=== PATIENT | female | born 1975 | race African-American/Black ===

== ENCOUNTER 2018-10-18 19:03 | Inpatient (IN) ==
[2018-10-18] MEDS ORDERED: 0.9 % Sodium Chloride 1,000 ML IVC ONE ×2 (19:32→19:39)
[2018-10-18] MEDS ORDERED: cefTRIAXone 1,000 MG in Water for inj. (sterile) 10 ML IVP ONE (19:32)
[2018-10-18] MEDS ORDERED: Morphine Sulfate 2 MG/ML SYRINGE IVP ONE (19:32)
[2018-10-18] MEDS ORDERED: Ondansetron ODT 4 MG TAB.RAPDIS SL ONE (19:32)
[2018-10-18 19:43] LABS: Bilirubin,Urine Small (Negative); Blood,Urine Moderate (Negative); Clarity,Urine Clear (Clear); Color,Urine Yellow (Yellow); Glucose,Urine (UA) Normal (Normal); Ketones,Urine 15 mg/dL (Negative); Leukocyte Esterase,Urine Negative (Negative); Nitrite,Urine Negative (Negative); Protein,Urine 100 mg/dL (Neg-Trace); Specific Gravity,Urine 1.023 (1.010-1.025); Urobilinogen,Urine Normal (Normal)
[2018-10-18 19:45] LABS: Hyaline Casts,Urine None Seen per lpf (None-Few); RBC,Urine 0-3 per hpf (0-3); Squamous Epithelial Cell,Urine Many per lpf (None-Few)
[2018-10-18] MEDS ORDERED: Ketorolac 15 MG/ML VIAL IVP ONE (19:50)
[2018-10-18 19:59] LABS: Basophils % 0.2 %; Eosinophils % 0.3 %; Hematocrit 35.6 % (35.3-44.9); Hemoglobin 12.4 g/dL (11.5-15.4); Immature Granulocytes % 0.8 % (0-4); Lymphocytes # 0.7 K/mcL (0.6-4.6); Lymphocytes % 7.7 %; Mean Corpuscular HGB Conc 34.8 g/dL (31.6-35.5); Mean Corpuscular Hemoglobin 30.8 pg (28.0-33.3); Mean Corpuscular Volume 88.3 fL (83.0-100.0); Mean Platelet Volume 10.2 fL (9.4-12.4); Monocytes # 0.2 K/mcL (0.0-1.3); Monocytes % 2.4 %; Neutrophils # 8.1 K/mcL (1.6-8.9); Platelet Count 163 K/mcL (140-400); Red Blood Count 4.03 M/mcL (3.82-4.97); Red Cell Distribution Width 12.9 % (11.5-14.5); Segmented Neutrophils % 88.6 %; White Blood Count 9.2 K/mcL (4.3-11.1)
[2018-10-18 20:15] LABS: Bacteria,Urine Few per hpf (None-Few); Yeast,Urine Moderate per hpf (None Seen)
[2018-10-18 20:17] LABS: Alanine Aminotransferase 11 Units/L (7-52); Albumin 3.6 g/dL (3.5-5.7); Albumin/Globulin Ratio 1.1 (1.1-2.2); Alkaline Phosphatase 87 Units/L (34-104); Amylase 20 Units/L (29-103); Aspartate Amino Transferase 14 Units/L (13-39); BUN/Creatinine Ratio 8 (6-26); Bilirubin,Direct 0.5 mg/dL (0.0-0.2); Bilirubin,Indirect 0.8 mg/dL (0.0-1.2); Bilirubin,Total 1.3 mg/dL (0.3-1.0); Blood Urea Nitrogen 12 mg/dL (6-20); Calcium 9.1 mg/dL (8.6-10.3); Carbon Dioxide 24 mEq/L (23-29); Chloride 95 mEq/L (98-107); Globulin 3.3 g/dL (2.4-3.5); Glucose 162 mg/dL (70-105); Lipase 8 Units/L (11-82); Osmolality,Calculated 271 (280-300); Potassium 2.7 mEq/L (3.5-5.1); Sodium 129 mEq/L (136-145); Total Protein 6.9 g/dL (6.4-8.9); eGFR For African Americans 49 (> 60); eGFR For Non-African Americans 40 (> 60)
--- NOTE | 2018-10-18 23:21 | Emergency Department Note ---
Disposition Clinical Impression: Calculus of kidney Disposition: Admitted As Inpatient Condition: Good Referrals: Zay Leigh MD [Primary Care Provider] - Time of Disposition: 23:24 General Adult HPI - General Chief complaint: ED Abdominal Pain Stated complaint: kidney stone 7 cm Source: patient, family - History of Present Illness HPI Narrative: HPI Chief Complaint kidney stone Patient Stated Complaint Patient is a 43-year-old white female comes in with known kidney stone recently diagnosed a few days ago by outside hospital 7 mm patient states no improvement felt feverish and chilled positive dysuria patient denies any chest pain or shortness of breath coming in today due to not improvement of symptoms patient alert and oriented 3 all other symptoms reviewed and are negative Allergy List : Reviewed-and agree with nurses notes Home Medication List : Reviewed-and agree with nurses notes Medical and Surgical History Active Problem List: Reviewed-and agree with nurses notes Family History Reviewed- see -nurses notes Vital Signs and Body Measurements Reviewed- see -nurses notes ROS At Least 10 Organ Systems Reviewed and Negative Except as Indicated in HPI Physical Examination: All findings normal unless otherwise noted Constitutional Alert & orientated x 3, No Acute Distress Well Nourished Head and Face :Normocephalic and Atraumatic Eye Extraocular Movement Intact Pupils Equally Round Reactive to light Ear Nose Throat Mucous Membranes Moist No Injury or Deformity Oropharynx Clear Cardiovascular Capillary Refill Less than 2 Seconds No Peripheral Edema Normal S1, S2 Pulses except positive tachycardia regular rhythm Respiratory Clear to Auscultation Bilaterally Normal Rate and Effort no Respiratory Distress or Stridor Gastrointestinal Abdomen Soft Bowel Sounds Present Not Tender Distended Generalized Tenderness. No Guarding Rebound Rigid Genitourinary No Lesion Normal External Genitalia positive bilateral flank tenderness to palpation Musculoskeletal Distal Pulses Normal No Injury or Deformity No Calf Tendernes, no Paraspinous Tenderness or spinal ttp Cervical Lumbar Thoracic Neurologic 5/5 Strength throughout No Focal Deficits Sensation Intact or Slurred Speech Skin Dry No Lesion No Rash Normal Color Warm no Cyanosis Diaphoretic Lymph No Lymphadenopathy or Lymphadenopathy Lymphedema Psychiatric Appropriate Affect Cooperative not Depressed Manic or having Suicidal Thoughts Laboratory Results-reviewed see results Data Reviewed Medical Decision Making and Diagnosis Medical Decision Making Patient seen and evaluated labs and imaging ordered reviewed images reviewed by myself and radiologist patient treated symptomatically with improvement patient on CT no have hydronephrosis continued IV antibiotics the medic treatment patient also noted to be up O clinic was replaced with magnesium and potassium here and be admitted for further evaluation and management and care Differential Diagnosis Considered Final Diagnostic Impression #1 kidney stone #2 urosepsis #3 hyponatremia Disposition Admit Supervisory Note Billing Evaluation and Management Total Critical Care Time 78 minutes Pain Scale: 10 - Related Data Allergies Allergy/AdvReac Type Severity Reaction Status Date / Time No Known Allergies Allergy Verified 10/18/18 19:07 Past Medical History - Past Medical History Medical history: Reports: non-contributory Psychiatric history: Reports: no psych history - Social History Smoking Status: Never smoker Alcohol use: Reports: none Drug use: Reports: none Physical Exam - General General appearance: alert Course Vital Signs Temperature 99.6 F 10/18/18 19:07 Pulse Rate 122 10/18/18 19:07 Respiratory Rate 24 10/18/18 19:07 Blood Pressure 125/70 10/18/18 19:07 O2 Sat by Pulse Oximetry 96 10/18/18 19:07 Temperature 99.6 F 10/18/18 20:20 Pulse Rate 122 10/18/18 20:20 Respiratory Rate 24 10/18/18 20:20 Blood Pressure 125/70 10/18/18 20:20 O2 Sat by Pulse Oximetry 96 10/18/18 20:20 Oxygen Delivery Oxygen Delivery Room Air Medical Decision Making - Lab Data Result diagrams: 10/18/18 19:35 10/18/18 19:35 Lab Results 10/18/18 10/18/18 10/18/18 Range/Units 19:30 19:30 19:30 WBC (4.3-11.1) K/mcL RBC (3.82-4.97) M/mcL Hgb (11.5-15.4) g/dL Hct (35.3-44.9) % MCV (83.0-100.0) fL MCH (28.0-33.3) pg MCHC (31.6-35.5) g/dL RDW (11.5-14.5) % Plt Count (140-400) K/mcL MPV (9.4-12.4) fL Immature Gran % (0-4) % Seg Neutrophils % % Lymphocytes % % Monocytes % % Eosinophils % % Basophils % % Neutrophils # (1.6-8.9) K/mcL Lymphocytes # (0.6-4.6) K/mcL Monocytes # (0.0-1.3) K/mcL Eosinophils # (0.0-0.6) K/mcL Basophils # (0.0-0.2) K/mcL Sodium (136-145) mEq/L Potassium (3.5-5.1) mEq/L Chloride (98-107) mEq/L Carbon Dioxide (23-29) mEq/L BUN (6-20) mg/dL Creatinine (0.60-1.20) mg/dL Est GFR ( Amer) (> 60) Est GFR (Non-Af Amer) (> 60) BUN/Creatinine Ratio (6-26) Glucose (70-105) mg/dL Calculated Osmolality (280-300) Lactic Acid 1.5 (0.5-2.2) mmol/L Calcium (8.6-10.3) mg/dL Total Bilirubin (0.3-1.0) mg/dL Direct Bilirubin (0.0-0.2) mg/dL Indirect Bilirubin (0.0-1.2) mg/dL AST (13-39) Units/L ALT (7-52) Units/L Alkaline Phosphatase (34-104) Units/L Serum Total Protein (6.4-8.9) g/dL Albumin (3.5-5.7) g/dL Globulin (2.4-3.5) g/dL Albumin/Globulin Ratio (1.1-2.2) Amylase (29-103) Units/L Lipase (11-82) Units/L Beta HCG, Quant (Less than 5) mIU/mL Urine Color Yellow (Yellow) Urine Clarity Clear (Clear) Urine pH 6.0 (5.0-8.0) pH Units Ur Specific [place] 1.023 (1.010-1.025) Urine Protein 100 H (Neg-Trace) mg/dL Urine Glucose (UA) Normal (Normal) mg/dL Urine Ketones 15 H (Negative) mg/dL Urine Blood Moderate H (Negative) Urine Nitrite Negative (Negative) Urine Bilirubin Small H (Negative) Urine Urobilinogen Normal (Normal) mg/dL Ur Leukocyte Esterase Negative (Negative) Urine Microscopic RBC 0-3 (0-3) per hpf Urine Microscopic WBC 3-5 H (0-3) per hpf Ur Squamous Epith Cells Many H (None-Few) per lpf Urine Bacteria Few (None-Few) per hpf Hyaline Casts None Seen (None-Few) per lpf Urine Yeast Moderate H (None Seen) per hpf Ur Culture Indicated? YES A (NO) Urine Test Negative (Negative) 10/18/18 10/18/18 Range/Units 19:35 19:35 WBC 9.2 (4.3-11.1) K/mcL RBC 4.03 (3.82-4.97) M/mcL Hgb 12.4 (11.5-15.4) g/dL Hct 35.6 (35.3-44.9) % MCV 88.3 (83.0-100.0) fL MCH 30.8 (28.0-33.3) pg MCHC 34.8 (31.6-35.5) g/dL RDW 12.9 (11.5-14.5) % Plt Count 163 (140-400) K/mcL MPV 10.2 (9.4-12.4) fL Immature Gran % 0.8 (0-4) % Seg Neutrophils % 88.6 % Lymphocytes % 7.7 % Monocytes % 2.4 % Eosinophils % 0.3 % Basophils % 0.2 % Neutrophils # 8.1 (1.6-8.9) K/mcL Lymphocytes # 0.7 (0.6-4.6) K/mcL Monocytes # 0.2 (0.0-1.3) K/mcL Eosinophils # 0.0 (0.0-0.6) K/mcL Basophils # 0.0 (0.0-0.2) K/mcL Sodium 129 L (136-145) mEq/L Potassium 2.7 L (3.5-5.1) mEq/L Chloride 95 L (98-107) mEq/L Carbon Dioxide 24 (23-29) mEq/L BUN 12 (6-20) mg/dL Creatinine 1.43 H (0.60-1.20) mg/dL Est GFR ( Amer) 49 L (> 60) Est GFR (Non-Af Amer) 40 L (> 60) BUN/Creatinine Ratio 8 (6-26) Glucose 162 H (70-105) mg/dL Calculated Osmolality 271 L (280-300) Lactic Acid (0.5-2.2) mmol/L Calcium 9.1 (8.6-10.3) mg/dL Total Bilirubin 1.3 H (0.3-1.0) mg/dL Direct Bilirubin 0.5 H (0.0-0.2) mg/dL Indirect Bilirubin 0.8 (0.0-1.2) mg/dL AST 14 (13-39) Units/L ALT 11 (7-52) Units/L Alkaline Phosphatase 87 (34-104) Units/L Serum Total Protein 6.9 (6.4-8.9) g/dL Albumin 3.6 (3.5-5.7) g/dL Globulin 3.3 (2.4-3.5) g/dL Albumin/Globulin Ratio 1.1 (1.1-2.2) Amylase 20 L (29-103) Units/L Lipase 8 L (11-82) Units/L Beta HCG, Quant < 1 (Less than 5) mIU/mL Urine Color (Yellow) Urine Clarity (Clear) Urine pH (5.0-8.0) pH Units Ur Specific [place] (1.010-1.025) Urine Protein (Neg-Trace) mg/dL Urine Glucose (UA) (Normal) mg/dL Urine Ketones (Negative) mg/dL Urine Blood (Negative) Urine Nitrite (Negative) Urine Bilirubin (Negative) Urine Urobilinogen (Normal) mg/dL Ur Leukocyte Esterase (Negative) Urine Microscopic RBC (0-3) per hpf Urine Microscopic WBC (0-3) per hpf Ur Squamous Epith Cells (None-Few) per lpf Urine Bacteria (None-Few) per hpf Hyaline Casts (None-Few) per lpf Urine Yeast (None Seen) per hpf Ur Culture Indicated? (NO) Urine Test (Negative)
[2018-10-19] MEDS ORDERED: MOM Conc 10 ML UD.LIQ PO ONE (00:27)
[2018-10-19] MEDS ORDERED: Ketorolac 30 MG/ML VIAL IVP PRN (00:28)
[2018-10-19] MEDS ORDERED: Ondansetron 4 MG/2 ML VIAL IVP PRN (00:29)
--- NOTE | 2018-10-19 00:51 | Internal Med History&Physical ---
Date of Encounter: 10/19/18 Time of Encounter: 00:50 Internal Medicine - H&P: HPI Chief complaint: flank pain Admitted From: Home () Plans for Post Hospital Care: Home History of present illness: Amanda Haq is a 43 year old woman with IBS-C who has had kidney stones in the past presenting to the emergency room complaining of one week of left flank pain radiating to her lower abdomen. Over the following day she developed fever and chills for which reason she contacted her PCP who recommended that she start taking TMP/SMX. Due to ongoing symptoms he then prescribed tamsulosin for her. She says that the pain continued and she developed a fever of 102F. Her was at bedside stated that he came home from work during the day and found her lying in bed with notable rigors and complaining of pain. She also had associated nausea but no vomiting. She reported one episode of diarrhea on Thursday when her symptoms started but has not had a bowel movement since. She says her last kidney stone was 4 years ago and prior to that it was 20 years ago. She denies any allergies or being on any medications at this time. She denies dysuria. In the ER she was notably tachycardic and in discomfort. Lab work revealed sodium 129, potassium 2.7, chloride 95 and creatinine 1.43. Her urine was remarkable for many squamous cells and minimal pyuria and no microscopic hematuria. Abdomen CT showed a 6 mm distal left ureteral calculus with mild to moderate left-sided hydronephrosis with infiltration of the perinephric and periureteric fat. She was given fluids, analgesics and is admitted for further care. Vitals: Reviewed General: Well developed white woman lying in bed in no acute distress. Skin: Warm and supple. HEENT: Slightly dry mucous membranes. No conjunctivae pallor. Neck: No lymphadenopathy. No JVD. No carotid bruits. No palpable thyroid. Chest: Normal thoracic expansion. Normal breath sounds. Clear to auscultation. Heart: Normal S1 & S2; rhythmic. No rubs or murmurs. Abdomen: Non-distended, soft and tender to palpation in the left flank and suprapubic region. + Left CVA tenderness. Extremities: No clubbing, cyanosis or edema. No calf tenderness. Normal distal pulses. Neurological: Awake, alert and oriented to person, place and time. No focal deficits. Psych: Affect appropriate. Assessment/Plan 1. Left nephrolithiasis: Obstructive and causing mild to moderate hydronephrosis. Will place on IVF, analgesics and antiemetics as needed. Urology consult placed as she may require an intervention for relief. 2. Urinary tract infection: Her symptoms of fever and chills with finding of tachycardia here are concerning for a septic state, likely complicated from the urinary stasis provoked by the obstructing stone. It is possible that because she has already been taking TMP/SMX, the negative urine results and lack of leukocytosis on hematology are from the antimicrobial effect. Will send urine and blood cultures then continue ceftriaxone 1gr daily pending further results. 3. Electrolyte imbalance: As evidenced by hyponatremia, hypokalemia and hypochloremia. Likely secondary to poor intake in the setting of her 1 week of symptoms. IV NaCL w/40mEq of KCL is ordered for repletion. 4. Acute kidney injury: Suspected although we dont have a baseline to compare to. Likely from dehydration (prerenal) in addition to renal in the setting of obstruction. Will repeat BMP after adequate fluid resuscitation. 5. IBS-C: Will give a dose of MoM tonight and place her on daily senna/docusate. Past Med Surg Social Fam HX - Past Medical History Medical history: non-contributory Psychiatric history: no psych history - Social History Smoking Status: Never smoker Alcohol use: none Drug use: none Internal Medicine - H&P: Meds Allergy/AdvReac Type Severity Reaction Status Date / Time No Known Allergies Allergy Verified 10/18/18 19:07 All Systems PM: A 10-system review of systems was performed and is negative for pertinent findings except as documented above in the HPI. Family history reviewed and found non-contributory. - Constitutional Vitals: Temp Pulse Resp BP Pulse Ox 99.6 F 94 15 111/67 93 10/18/18 20:20 10/18/18 23:40 10/18/18 23:40 10/18/18 23:40 10/18/18 23:40 Exam: . Internal Med - H&P Results - Labs CBC & Chem 7: 10/18/18 19:35 10/18/18 19:35 Labs: Short CBC 10/18/18 Range/Units 19:35 WBC 9.2 (4.3-11.1) K/mcL Hgb 12.4 (11.5-15.4) g/dL Hct 35.6 (35.3-44.9) % Plt Count 163 (140-400) K/mcL Neutrophils # 8.1 (1.6-8.9) K/mcL BMP 10/18/18 19:35 Sodium 129 L Potassium 2.7 L Chloride 95 L Carbon Dioxide 24 BUN 12 Creatinine 1.43 H Glucose 162 H Calcium 9.1 Liver Function 10/18/18 Range/Units 19:35 Total Bilirubin 1.3 H (0.3-1.0) mg/dL Direct Bilirubin 0.5 H (0.0-0.2) mg/dL AST 14 (13-39) Units/L ALT 11 (7-52) Units/L Alkaline Phosphatase 87 (34-104) Units/L Albumin 3.6 (3.5-5.7) g/dL Urine 10/18/18 Range/Units 19:30 Urine Color Yellow (Yellow) Urine Clarity Clear (Clear) Urine pH 6.0 (5.0-8.0) pH Units Ur Specific [place] 1.023 (1.010-1.025) Urine Protein 100 H (Neg-Trace) mg/dL Urine Glucose (UA) Normal (Normal) mg/dL - Impressions ITS Impressions Abdomen/Pelvis CT 10/18/18 19:32 IMPRESSION: 1. 6 mm distal left ureteral calculus. Mild to moderate left-sided hydronephrosis with infiltration of the perinephric and periureteric fat. 2. No other acute findings within the abdomen or pelvis. 3. Increased attenuation in the dependent gallbladder, likely sludge. 4. Bibasilar atelectasis with trace left pleural effusion. D/ / 10/18/2018 21:01:46 M[facility]ule[facility] Interpreting Provider: Mika Mccauley MD - Time Spent With Patient Total time spent is greater than 50% in coordination of care (as documented) at patient's floor/unit and/or counseling patient:
[2018-10-19] MEDS: 0.9 % Sodium Chloride w KCl 40 MEQ/1,000 ML MLS IVC SCH ×2 (01:27→10:30)
[2018-10-19 05:39] LABS: Basophils % 0.2 %; Eosinophils % 0.4 %; Hematocrit 28.7 % (35.3-44.9); Immature Granulocytes % 0.9 % (0-4); Lymphocytes # 1.2 K/mcL (0.6-4.6); Lymphocytes % 12.6 %; Mean Corpuscular HGB Conc 33.8 g/dL (31.6-35.5); Mean Corpuscular Hemoglobin 30.8 pg (28.0-33.3); Mean Corpuscular Volume 91.1 fL (83.0-100.0); Mean Platelet Volume 10.1 fL (9.4-12.4); Monocytes # 1.1 K/mcL (0.0-1.3); Monocytes % 11.6 %; Neutrophils # 7.3 K/mcL (1.6-8.9); Platelet Count 148 K/mcL (140-400); Red Blood Count 3.15 M/mcL (3.82-4.97); Red Cell Distribution Width 13.2 % (11.5-14.5); Segmented Neutrophils % 74.3 %; White Blood Count 9.8 K/mcL (4.3-11.1)
[2018-10-19 05:45] LABS: Hemoglobin 9.7 g/dL (11.5-15.4)
[2018-10-19 06:00] LABS: Calcium 7.9 mg/dL (8.6-10.3); Magnesium 2.8 mg/dL (1.6-2.6); Platelet Estimate Normal (Normal); Potassium 3.5 mEq/L (3.5-5.1)
[2018-10-19] MEDS: Sennosides/Docusate Sodium TABLET PO SCH ×3 (08:31→22:13)
--- NOTE | 2018-10-19 09:40 | Urology - Consult Note ---
<Suad De Jesus N - Last Filed: 10/19/18 09:37> Date of Encounter: 10/19/18 Time of Encounter: 08:40 - Assessment and Plan (1) Ureteral stone with hydronephrosis Current Visit: Yes Status: Acute Assessment and plan: Patient is a 43-year-old female who presents with a 6 mm left distal ureteral stone and hydronephrosis. We discussed surgical risks and benefits, and patient verbalized understanding. Patient signed consent, and she is prepared undergo a left ureteroscopic stone extraction with holmium laser lithotripsy, basket retrieval and left ureteral stent placement. Patient will remain nothing by mouth. Urology CN:HPI Consult date: 10/19/18 Reason for consult Urology: Hydronephrosis (left ureteral stone) Requesting physician: Jose Martin Egan History of present illness: Patient is a 43-year-old female who presents with a 6 mm left distal ureteral stone and hydronephrosis. Patient reports a 5 day history of severe left-sided flank pain, nausea, fever and chills. Patient initially presented to primary care provider who prescribed oral Bactrim and Flomax. Patient states pain acutely worsened overnight, and she presented to the emergency department where she underwent a CT of the abdomen and pelvis revealing a 6 mm left distal ureteral stone and mild to moderate hydronephrosis. Patient reports a past history of renal stones, but she has passed all prior stones by medical expulsion. Patient admits to a family history of renal stones through her paternal grandmother. Currently, patient is sitting upright in bed in no apparent distress, and she denies any fever, chills, gross hematuria or dysuria. Past Med Surg Social Fam HX - Past Medical History Medical history: non-contributory Psychiatric history: no psych history - Past Surgical History Surgical History: non-contributory - Social History Smoking Status: Never smoker Alcohol use: none Drug use: none - Family History Paternal Grandmother Hx Family Genitourinary Disorders: Yes (renal stones ) Medications and Allergies Norethindrone-E.estradiol-Iron [Lo Loestrin Fe 1-10 Tablet] 1 tab PO DAILY 10/19/18 [History] Ondansetron HCl 4 mg PO Q4H PRN 10/19/18 [History] OxyCODONE/APAP 5/325 [Percocet 5/325 MG] 1 tab PO Q6H PRN 10/19/18 [History] Sulfamethoxazole/Trimeth DS [Bactrim Ds] 1 tab PO BID 10/19/18 [History] Tamsulosin [Flomax] 0.4 mg PO DAILY 10/19/18 [History] Allergy/AdvReac Type Severity Reaction Status Date / Time No Known Allergies Allergy Verified 10/19/18 10:49 Review of Systems - Constitutional chills, fatigue, fever(s) - EENT Nose, mouth and throat: no dizziness, no headache(s) - Cardiovascular no chest pain, no diaphoresis, no dyspnea - Respiratory no cough, no dyspnea - Gastrointestinal abdominal pain, nausea, no vomiting - Genitourinary Genitourinary: dysuria, flank pain, no difficulty urinating, no hematuria, no urinary frequency, no urinary hesitancy, no urinary incontinence, no urinary urgency - Musculoskeletal back pain, no muscle weakness - Integumentary no erythema, no rash - Neurological no confusion, no sensory deficit - Hematologic/Lymphatic no easy bleeding, no easy bruising - Allergic/Immunologic no throat swelling, no wheezing Exam Initial Vital Signs Temp Pulse Resp BP Pulse Ox 99.6 F 122 24 125/70 96 10/18/18 19:07 10/18/18 19:07 10/18/18 19:07 10/18/18 19:07 10/18/18 19:07 - General physical appearance Present: no distress, no pain - Eyes Present: PERRL, normal ocular movement - ENT Present: normal nares, no hearing loss, no congestion - Neck Present: no masses, trachea midline, no lymphadenopathy - Respiratory Present: normal respiratory effort - Cardiovascular Cardiovascular exam IM: RRR - Abdomen Abdomen: Present: soft, non tender. Absent: distended - Genitourinary Present: other (No CVAT) - Integumentary Present: no rash, no abnormal pigmentation - Neurologic Present: normal coordination - Musculoskeletal Present: other (Normal posture) Urology Results - Labs 10/19/18 04:58 10/19/18 04:58 Abnormal lab results RBC 3.15 M/mcL (3.82-4.97) L 10/19/18 04:58 Hgb 9.7 g/dL (11.5-15.4) L D 10/19/18 04:58 Hct 28.7 % (35.3-44.9) L 10/19/18 04:58 Sodium 133 mEq/L (136-145) L 10/19/18 04:58 Potassium 2.7 mEq/L (3.5-5.1) L 10/18/18 19:35 Chloride 95 mEq/L (98-107) L 10/18/18 19:35 Creatinine 1.37 mg/dL (0.60-1.20) H 10/19/18 04:58 Est GFR ( Amer) 51 (> 60) L 10/19/18 04:58 Est GFR (Non-Af Amer) 42 (> 60) L 10/19/18 04:58 Glucose 117 mg/dL (70-105) H 10/19/18 04:58 Calculated Osmolality 277 (280-300) L 10/19/18 04:58 Calcium 7.9 mg/dL (8.6-10.3) L 10/19/18 04:58 Magnesium 2.8 mg/dL (1.6-2.6) H 10/19/18 04:58 Total Bilirubin 1.3 mg/dL (0.3-1.0) H 10/18/18 19:35 Direct Bilirubin 0.5 mg/dL (0.0-0.2) H 10/18/18 19:35 Amylase 20 Units/L (29-103) L 10/18/18 19:35 Lipase 8 Units/L (11-82) L 10/18/18 19:35 Urine Protein 100 mg/dL (Neg-Trace) H 10/18/18 19:30 Urine Ketones 15 mg/dL (Negative) H 10/18/18 19:30 Urine Blood Moderate (Negative) H 10/18/18 19:30 Urine Bilirubin Small (Negative) H 10/18/18 19:30 Urine Microscopic WBC 3-5 per hpf (0-3) H 10/18/18 19:30 Ur Squamous Epith Cells Many per lpf (None-Few) H 10/18/18 19:30 Urine Yeast Moderate per hpf (None Seen) H 10/18/18 19:30 Ur Culture Indicated? YES (NO) A 10/18/18 19:30 Diabetes panel 10/18/18 10/19/18 Range/Units 19:35 04:58 Sodium 129 L 133 L (136-145) mEq/L Potassium 2.7 L 3.5 D (3.5-5.1) mEq/L Chloride 95 L 103 (98-107) mEq/L Carbon Dioxide 24 23 (23-29) mEq/L BUN 12 13 (6-20) mg/dL Creatinine 1.43 H 1.37 H (0.60-1.20) mg/dL Glucose 162 H 117 H (70-105) mg/dL Calcium 9.1 7.9 L (8.6-10.3) mg/dL AST 14 (13-39) Units/L ALT 11 (7-52) Units/L Alkaline Phosphatase 87 (34-104) Units/L Albumin 3.6 (3.5-5.7) g/dL Calcium panel 10/18/18 10/19/18 Range/Units 19:35 04:58 Calcium 9.1 7.9 L (8.6-10.3) mg/dL Albumin 3.6 (3.5-5.7) g/dL Pituitary panel 10/18/18 10/19/18 Range/Units 19:35 04:58 Sodium 129 L 133 L (136-145) mEq/L Potassium 2.7 L 3.5 D (3.5-5.1) mEq/L Chloride 95 L 103 (98-107) mEq/L Carbon Dioxide 24 23 (23-29) mEq/L BUN 12 13 (6-20) mg/dL Creatinine 1.43 H 1.37 H (0.60-1.20) mg/dL Glucose 162 H 117 H (70-105) mg/dL Calcium 9.1 7.9 L (8.6-10.3) mg/dL Adrenal panel 10/18/18 10/19/18 Range/Units 19:35 04:58 Sodium 129 L 133 L (136-145) mEq/L Potassium 2.7 L 3.5 D (3.5-5.1) mEq/L Chloride 95 L 103 (98-107) mEq/L Carbon Dioxide 24 23 (23-29) mEq/L BUN 12 13 (6-20) mg/dL Creatinine 1.43 H 1.37 H (0.60-1.20) mg/dL Glucose 162 H 117 H (70-105) mg/dL Calcium 9.1 7.9 L (8.6-10.3) mg/dL Total Bilirubin 1.3 H (0.3-1.0) mg/dL AST 14 (13-39) Units/L ALT 11 (7-52) Units/L Alkaline Phosphatase 87 (34-104) Units/L Albumin 3.6 (3.5-5.7) g/dL All other labs normal. - Imaging CT scan - abdomen: report reviewed, image reviewed CT scan - pelvis: report reviewed, image reviewed Consult Discharge Plan - Plan Referrals: Zay Leigh MD [Primary Care Provider] - <Gurjit Hull - Last Filed: 10/19/18 14:52> Date of Encounter: 10/19/18 - Assessment and Plan (1) Fever and chills Current Visit: Yes Status: Acute Assessment and plan: Likely from UTI. Continue with broad-spectrum antimicrobial coverage until cultures return. (2) Acute cystitis without hematuria Current Visit: Yes Status: Acute Assessment and plan: Continue with current antimicrobial coverage (3) Nausea without vomiting Current Visit: Yes Status: Acute (4) Ureteral stone with hydronephrosis Current Visit: Yes Status: Acute Assessment and plan: Patient was seen and examined independently. Agree with the plan as written by Suad De Jesus. At this time the patient will be scheduled tomorrow for left ureteroscopic stone extraction with holmium laser. All pertinent risks benefits and alternatives were discussed with the patient. She voiced her understanding and is willing to proceed. Exam Initial Vital Signs Temp Pulse Resp BP Pulse Ox 99.6 F 122 24 125/70 96 10/18/18 19:07 10/18/18 19:07 10/18/18 19:07 10/18/18 19:07 10/18/18 19:07 Urology Results - Labs 10/19/18 04:58 10/19/18 04:58 Abnormal lab results RBC 3.15 M/mcL (3.82-4.97) L 10/19/18 04:58 Hgb 9.7 g/dL (11.5-15.4) L D 10/19/18 04:58 Hct 28.7 % (35.3-44.9) L 10/19/18 04:58 Sodium 133 mEq/L (136-145) L 10/19/18 04:58 Potassium 2.7 mEq/L (3.5-5.1) L 10/18/18 19:35 Chloride 95 mEq/L (98-107) L 10/18/18 19:35 Creatinine 1.37 mg/dL (0.60-1.20) H 10/19/18 04:58 Est GFR ( Amer) 51 (> 60) L 10/19/18 04:58 Est GFR (Non-Af Amer) 42 (> 60) L 10/19/18 04:58 Glucose 117 mg/dL (70-105) H 10/19/18 04:58 Calculated Osmolality 277 (280-300) L 10/19/18 04:58 Calcium 7.9 mg/dL (8.6-10.3) L 10/19/18 04:58 Magnesium 2.8 mg/dL (1.6-2.6) H 10/19/18 04:58 Total Bilirubin 1.3 mg/dL (0.3-1.0) H 10/18/18 19:35 Direct Bilirubin 0.5 mg/dL (0.0-0.2) H 10/18/18 19:35 Amylase 20 Units/L (29-103) L 10/18/18 19:35 Lipase 8 Units/L (11-82) L 10/18/18 19:35 Urine Protein 100 mg/dL (Neg-Trace) H 10/18/18 19:30 Urine Ketones 15 mg/dL (Negative) H 10/18/18 19:30 Urine Blood Moderate (Negative) H 10/18/18 19:30 Urine Bilirubin Small (Negative) H 10/18/18 19:30 Urine Microscopic WBC 3-5 per hpf (0-3) H 10/18/18 19:30 Ur Squamous Epith Cells Many per lpf (None-Few) H 10/18/18 19:30 Urine Yeast Moderate per hpf (None Seen) H 10/18/18 19:30 Ur Culture Indicated? YES (NO) A 10/18/18 19:30 Diabetes panel 10/18/18 10/19/18 Range/Units 19:35 04:58 Sodium 129 L 133 L (136-145) mEq/L Potassium 2.7 L 3.5 D (3.5-5.1) mEq/L Chloride 95 L 103 (98-107) mEq/L Carbon Dioxide 24 23 (23-29) mEq/L BUN 12 13 (6-20) mg/dL Creatinine 1.43 H 1.37 H (0.60-1.20) mg/dL Glucose 162 H 117 H (70-105) mg/dL Calcium 9.1 7.9 L (8.6-10.3) mg/dL AST 14 (13-39) Units/L ALT 11 (7-52) Units/L Alkaline Phosphatase 87 (34-104) Units/L Albumin 3.6 (3.5-5.7) g/dL Calcium panel 10/18/18 10/19/18 Range/Units 19:35 04:58 Calcium 9.1 7.9 L (8.6-10.3) mg/dL Albumin 3.6 (3.5-5.7) g/dL Pituitary panel 10/18/18 10/19/18 Range/Units 19:35 04:58 Sodium 129 L 133 L (136-145) mEq/L Potassium 2.7 L 3.5 D (3.5-5.1) mEq/L Chloride 95 L 103 (98-107) mEq/L Carbon Dioxide 24 23 (23-29) mEq/L BUN 12 13 (6-20) mg/dL Creatinine 1.43 H 1.37 H (0.60-1.20) mg/dL Glucose 162 H 117 H (70-105) mg/dL Calcium 9.1 7.9 L (8.6-10.3) mg/dL Adrenal panel 10/18/18 10/19/18 Range/Units 19:35 04:58 Sodium 129 L 133 L (136-145) mEq/L Potassium 2.7 L 3.5 D (3.5-5.1) mEq/L Chloride 95 L 103 (98-107) mEq/L Carbon Dioxide 24 23 (23-29) mEq/L BUN 12 13 (6-20) mg/dL Creatinine 1.43 H 1.37 H (0.60-1.20) mg/dL Glucose 162 H 117 H (70-105) mg/dL Calcium 9.1 7.9 L (8.6-10.3) mg/dL Total Bilirubin 1.3 H (0.3-1.0) mg/dL AST 14 (13-39) Units/L ALT 11 (7-52) Units/L Alkaline Phosphatase 87 (34-104) Units/L Albumin 3.6 (3.5-5.7) g/dL All other labs normal.
--- NOTE | 2018-10-19 15:29 | Internal Med Progress Note ---
Hospitalist Progress Note - Encounter Date of Encounter: 10/19/18 Time of Encounter: 10:45 - Subjective Interval History: Ms Haq is planned for urological intervention tomorrow she said her last episode of nephrolithiasis was 5 years ago and prior to that 20 years ago. Had father who also was at the bedside, stated patient's paternal grandmother had history of nephrolithiasis GEN: reports fever, chills or malaise HEENT: Denies headache blurriness, or dysphagia RESP: Denies SOB or cough CV: Denies chest pain or palpitations GI: admits to Nausea, vomiting, and constipation Reviewed current in hospital medications with modifications see orders Reviewed Routine labs - Exam Vitals: Temp Pulse Resp BP Pulse Ox 99.7 F H 100 17 121/70 94 10/19/18 13:51 10/19/18 13:51 10/19/18 13:51 10/19/18 13:51 10/19/18 13:51 Exam: GEN: Mildly distressed, A&O x 3, Pleasant and conversant, father, mother, daughter at bedside SKIN: Flushed and warm acyanotic not jaundice HEART: RRR, no murmurs LUNGS: CTA no wheeze few scattered crackles, overall non labored ABDOMEN; Soft, slightly tender suprapubic, CVA tenderness, BS x 4 normactive EXT: No LE edema, Pedal pulses 1+, radial pulses 2+ PSYCH: Mood and affect is appropriate - Assessment and Plan (1) Sepsis Current Visit: Yes Status: Acute Assessment and Plan: Likely secondary to her UTI culture is growing in blood is pending she remains febrile and tachycardic although no leukocytosis. Continue ceftriaxone hopefully should improve once she undergoes her renal calculus retrieval procedure which is likely down the underlying etiology for her developing UTI (2) UTI (urinary tract infection) Current Visit: Yes Status: Acute Assessment and Plan: Urine culture is pending continue ceftriaxone (3) Acute kidney injury Current Visit: Yes Status: Acute Assessment and Plan: Underlying postobstructive plus intrinsic renal causes given her ureteric stone with hydronephrosis. Serum creatinine Mildly improved from 1.43-1.37 with IV hydration (4) Acute blood loss anemia Current Visit: Yes Status: Acute Assessment and Plan: Secondary to hematuria hemoglobin 12.4 now 9.7 we will trend CBC hopefully should improve once she has a urological intervention (5) Acute hyponatremia Current Visit: Yes Status: Acute Assessment and Plan: Sodium improved from 129 on admission to 133 suspect poor intake cannot really follow restrict patient at present given a sepsis presentation check BMP in the morning (6) Hypokalemia Current Visit: Yes Status: Acute Assessment and Plan: Results potassium 2.7 now 3.5, supplementation (7) Ureteral stone with hydronephrosis Current Visit: Yes Status: Acute Assessment and Plan: Urological intervention planned plan per urologist DVT Prophylaxis: SCDs - Time Spent with Patient Total time spent is greater than 50% in coordination of care (as documented) at patient's floor/unit and/or counseling patient: Internal Medicine: Result - Labs CBC & Chem 7: 10/19/18 04:58 10/19/18 04:58 Labs: Short CBC 10/18/18 10/19/18 Range/Units 19:35 04:58 WBC 9.2 9.8 (4.3-11.1) K/mcL Hgb 12.4 9.7 L D (11.5-15.4) g/dL Hct 35.6 28.7 L (35.3-44.9) % Plt Count 163 148 (140-400) K/mcL Neutrophils # 8.1 7.3 (1.6-8.9) K/mcL BMP 10/18/18 10/19/18 19:35 04:58 Sodium 129 L 133 L Potassium 2.7 L 3.5 D Chloride 95 L 103 Carbon Dioxide 24 23 BUN 12 13 Creatinine 1.43 H 1.37 H Glucose 162 H 117 H Calcium 9.1 7.9 L Liver Function 10/18/18 Range/Units 19:35 Total Bilirubin 1.3 H (0.3-1.0) mg/dL Direct Bilirubin 0.5 H (0.0-0.2) mg/dL AST 14 (13-39) Units/L ALT 11 (7-52) Units/L Alkaline Phosphatase 87 (34-104) Units/L Albumin 3.6 (3.5-5.7) g/dL Urine 10/18/18 Range/Units 19:30 Urine Color Yellow (Yellow) Urine Clarity Clear (Clear) Urine pH 6.0 (5.0-8.0) pH Units Ur Specific [place] 1.023 (1.010-1.025) Urine Protein 100 H (Neg-Trace) mg/dL Urine Glucose (UA) Normal (Normal) mg/dL - Impressions Impressions Abdomen/Pelvis CT 10/18/18 19:32 IMPRESSION: 1. 6 mm distal left ureteral calculus. Mild to moderate left-sided hydronephrosis with infiltration of the perinephric and periureteric fat. 2. No other acute findings within the abdomen or pelvis. 3. Increased attenuation in the dependent gallbladder, likely sludge. 4. Bibasilar atelectasis with trace left pleural effusion. D/ / 10/18/2018 21:01:46 Mika Mccauley MD / [email or web address] Interpreting Provider: Mika Mccauley MD Consult Discharge Plan - Plan Referrals: Zay Leigh MD [Primary Care Provider] - (1) Sepsis Qualifiers: Sepsis type: sepsis due to unspecified organism Sepsis acute organ dysfunctio n status: with acute organ dysfunction Severe sepsis acute organ dysfunction type: acute renal failure Severe sepsis shock status: without septic shock (2) UTI (urinary tract infection) Qualifiers: Hematuria presence: with hematuria
--- NOTE | 2018-10-19 18:38 | Anesthesia Evaluation PreOp ---
Date of Encounter: 10/19/18 Time of Encounter: 20:14 - Past History Planned Operation: Left Ureteroscopic Stone Extraction Cardiac History: Denies any Significant Hx Pulmonary History: Denies Any Significant HX, Snore PET STYLIST History: Denies Any Significant HX Other Medical History: Renal (kidney stones) Anesthesia History: No Prior Anesthetic Complications (C/S x 2, no prior GA), Past Anesthesia Test: Negative (10/18/2018) Alcohol Use: rarely Drug use: none Medications and Allergies Norethindrone-E.estradiol-Iron [Lo Loestrin Fe 1-10 Tablet] 1 tab PO DAILY 10/19/18 [History] Ondansetron HCl 4 mg PO Q4H PRN 10/19/18 [History] OxyCODONE/APAP 5/325 [Percocet 5/325 MG] 1 tab PO Q6H PRN 10/19/18 [History] Sulfamethoxazole/Trimeth DS [Bactrim Ds] 1 tab PO BID 10/19/18 [History] Tamsulosin [Flomax] 0.4 mg PO DAILY 10/19/18 [History] Allergy/AdvReac Type Severity Reaction Status Date / Time No Known Allergies Allergy Verified 10/19/18 10:49 - Meds/Allergy Pre-op Review Medications Reviewed: Yes Allergies Reviewed: Yes Beta Blockers on Current Med List: No Anesthesia Results - Labs 10/19/18 04:58 10/19/18 04:58 Laboratory Tests 10/18/18 19:35 Beta HCG, Quant < 1 Anesthesia Exam Vital Signs/O2 Sat, Most Current Temp Pulse Resp BP Pulse Ox 99.7 F H 100 17 121/70 94 10/19/18 13:51 10/19/18 13:51 10/19/18 13:51 10/19/18 13:51 10/19/18 13:51 Height: 5'2''/1.57m Weight: 171 lbs/77.9 kg NPO (# of Hours): 8 Pain Scale: 0 Pain Scale Used: Numeric (1 - 10) - HEENT Pupil (Motor): EOMI Mallampati: III Teeth: Normal Oral Opening: Greater than 3 - PET STYLIST LOC: Oriented PET STYLIST Motor: Normal RUE, Normal LUE, Normal RLE, Normal LLE, Normal Face PET STYLIST Sensory: Normal: RUE, LUE, RLE, LLE, Face - Cardiac Rhythm: Regular Murmur: None - Pulmonary Breath Sounds: bilateral Clear Respiratory Effort: Symmetrical Anesthesia Assess/Plan ASA Score: 2 Level of consciousness: Cooperative, Oriented, Tranquil Anesthetic Plan: General Monitoring Plan: Standard Monitors Recovery Plan: PACU
[2018-10-19] MEDS: Acetaminophen 325 MG TABLET PO PRN (19:35)
[2018-10-19] MEDS ORDERED: 0.9 % Sodium Chloride 1,000 ML IVC SCH (20:00)
[2018-10-19] MEDS: cefTRIAXone 1,000 MG in Water for inj. (sterile) 10 ML IVP SCH (22:05)
[2018-10-20 05:25] LABS: Basophils % 0.3 %; Eosinophils # 0.1 K/mcL (0.0-0.6); Eosinophils % 0.6 %; Hematocrit 29.4 % (35.3-44.9); Hemoglobin 9.7 g/dL (11.5-15.4); Immature Granulocytes % 2.1 % (0-4); Lymphocytes # 1.5 K/mcL (0.6-4.6); Lymphocytes % 12.1 %; Mean Corpuscular Hemoglobin 30.5 pg (28.0-33.3); Mean Corpuscular Volume 92.5 fL (83.0-100.0); Monocytes # 1.3 K/mcL (0.0-1.3); Monocytes % 10.3 %; Platelet Count 189 K/mcL (140-400); Red Blood Count 3.18 M/mcL (3.82-4.97); Red Cell Distribution Width 13.3 % (11.5-14.5); Segmented Neutrophils % 74.6 %; White Blood Count 12.4 K/mcL (4.3-11.1)
[2018-10-20 05:32] LABS: Neutrophils # 9.3 K/mcL (1.6-8.9)
[2018-10-20 05:41] LABS: Calcium 7.7 mg/dL (8.6-10.3)
[2018-10-20 06:11] LABS: Platelet Estimate Normal (Normal)
[2018-10-20] MEDS ORDERED: *HR* Dextrose 50 % in Water (Syg) 50 ML SYRINGE IVP PRN ×2 (08:08→13:55)
[2018-10-20] MEDS ORDERED: Dextrose Gel 15 GM/37.5 ML TUBE PO PRN ×4 (08:08→13:55)
[2018-10-20] MEDS ORDERED: D5% in Water 1,000 ML IVC PRN ×2 (08:08→13:55)
[2018-10-20] MEDS ORDERED: D5% in 0.9% NACL 1,000 ML IVC SCH ×2 (08:15→13:55)
--- NOTE | 2018-10-20 09:03 | Urology Progress Note ---
<Suad De Jesus N - Last Filed: 10/20/18 09:00> Date of Encounter: 10/20/18 Time of Encounter: 08:20 - Assessment and Plan (1) Ureteral stone with hydronephrosis Current Visit: Yes Status: Acute Assessment and plan: Patient is a 43-year-old female who presents with a 6 mm left distal ureteral stone and hydronephrosis. Vital signs are currently stable and afebrile, although, patient experienced a fever to 101.4F yesterday evening. Preliminary urine culture is positive for gram-positive cocci, and patient is receiving IV Rocephin. Patient has remained nothing by mouth after midnight, and she is anticipating surgery today with Dr. Hull. She is aware that she may undergo more than one procedure for definitive stone extraction secondary to infection. Progress Note Narrative: Patient seen and examined sitting upright in bed in no apparent distress. Patient reports she is voiding well without difficulty. Patient admits to continued flank pain, and she is experiencing some fever and chills. Objective Initial Vital Signs Temp Pulse Resp BP Pulse Ox 99.6 F 122 24 125/70 96 10/18/18 19:07 10/18/18 19:07 10/18/18 19:07 10/18/18 19:07 10/18/18 19:07 - General physical appearance Present: no distress, no pain - Respiratory Present: normal expansion, normal respiratory effort - Abdomen Present: soft, non tender. Absent: distended - Integumentary Present: no rash, no abnormal pigmentation - Musculoskeletal Present: normal gait, normal posture - Psychiatric Present: oriented to time, oriented to person, oriented to place, speech is n ormal, memory intact - Labs 10/20/18 04:44 10/20/18 04:44 Diabetes panel 10/20/18 Range/Units 04:44 Sodium 132 L (136-145) mEq/L Potassium 4.0 (3.5-5.1) mEq/L Chloride 105 (98-107) mEq/L Carbon Dioxide 23 (23-29) mEq/L BUN 11 (6-20) mg/dL Creatinine 1.32 H (0.60-1.20) mg/dL Glucose 123 H (70-105) mg/dL Calcium 7.7 L (8.6-10.3) mg/dL Calcium panel 10/20/18 Range/Units 04:44 Calcium 7.7 L (8.6-10.3) mg/dL Pituitary panel 10/20/18 Range/Units 04:44 Sodium 132 L (136-145) mEq/L Potassium 4.0 (3.5-5.1) mEq/L Chloride 105 (98-107) mEq/L Carbon Dioxide 23 (23-29) mEq/L BUN 11 (6-20) mg/dL Creatinine 1.32 H (0.60-1.20) mg/dL Glucose 123 H (70-105) mg/dL Calcium 7.7 L (8.6-10.3) mg/dL Adrenal panel 10/20/18 Range/Units 04:44 Sodium 132 L (136-145) mEq/L Potassium 4.0 (3.5-5.1) mEq/L Chloride 105 (98-107) mEq/L Carbon Dioxide 23 (23-29) mEq/L BUN 11 (6-20) mg/dL Creatinine 1.32 H (0.60-1.20) mg/dL Glucose 123 H (70-105) mg/dL Calcium 7.7 L (8.6-10.3) mg/dL Consult Discharge Plan - Plan Referrals: Gurjit Hull MD [Partnered Physician] - Zay Leigh MD [Primary Care Provider] - <Gurjit Hull - Last Filed: 10/20/18 11:22> Date of Encounter: 10/20/18 - Assessment and Plan (1) Fever and chills Current Visit: Yes Status: Acute (2) Acute cystitis without hematuria Current Visit: Yes Status: Acute (3) Nausea without vomiting Current Visit: Yes Status: Acute (4) Ureteral stone with hydronephrosis Current Visit: Yes Status: Acute Progress Note Narrative: Patient was seen and examined independently. Agree with the plan as written by Suad De Jesus. Patient will be taken to the operative room today for attempted left ureteroscopic stone extraction with ureteral stent placement Objective Initial Vital Signs Temp Pulse Resp BP Pulse Ox 99.6 F 122 24 125/70 96 10/18/18 19:07 10/18/18 19:07 10/18/18 19:07 10/18/18 19:07 10/18/18 19:07 - Labs 10/20/18 04:44 10/20/18 04:44 Diabetes panel 10/20/18 Range/Units 04:44 Sodium 132 L (136-145) mEq/L Potassium 4.0 (3.5-5.1) mEq/L Chloride 105 (98-107) mEq/L Carbon Dioxide 23 (23-29) mEq/L BUN 11 (6-20) mg/dL Creatinine 1.32 H (0.60-1.20) mg/dL Glucose 123 H (70-105) mg/dL Calcium 7.7 L (8.6-10.3) mg/dL Calcium panel 10/20/18 Range/Units 04:44 Calcium 7.7 L (8.6-10.3) mg/dL Pituitary panel 10/20/18 Range/Units 04:44 Sodium 132 L (136-145) mEq/L Potassium 4.0 (3.5-5.1) mEq/L Chloride 105 (98-107) mEq/L Carbon Dioxide 23 (23-29) mEq/L BUN 11 (6-20) mg/dL Creatinine 1.32 H (0.60-1.20) mg/dL Glucose 123 H (70-105) mg/dL Calcium 7.7 L (8.6-10.3) mg/dL Adrenal panel 10/20/18 Range/Units 04:44 Sodium 132 L (136-145) mEq/L Potassium 4.0 (3.5-5.1) mEq/L Chloride 105 (98-107) mEq/L Carbon Dioxide 23 (23-29) mEq/L BUN 11 (6-20) mg/dL Creatinine 1.32 H (0.60-1.20) mg/dL Glucose 123 H (70-105) mg/dL Calcium 7.7 L (8.6-10.3) mg/dL
[2018-10-20] MEDS: Sennosides/Docusate Sodium TABLET PO SCH ×2 (09:49→20:41)
[2018-10-20] MEDS: cefTRIAXone 1,000 MG in Water for inj. (sterile) 10 ML IVP SCH (09:53)
[2018-10-20] MEDS: Acetaminophen 325 MG TABLET PO PRN (09:53)
[2018-10-20] MEDS ORDERED: Insulin LISPRO 300 UNITS/3 ML VIAL SQ SCH ×2 (12:00→18:00)
[2018-10-20] MEDS ORDERED: Ondansetron 4 MG/2 ML VIAL ONE (12:44)
[2018-10-20] MEDS ORDERED: Dexamethasone 4 MG/ML VIAL ONE (12:44)
[2018-10-20] MEDS ORDERED: *HR* FentaNYL (PF) 100 MCG/2 ML VIAL ONE (12:53)
[2018-10-20] MEDS ORDERED: *HR* Midazolam HCl 2 MG/2 ML VIAL ONE (12:53)
[2018-10-20] MEDS ORDERED: *HR* Propofol 200 MG/20 ML VIAL IVP ONE (12:53)
--- NOTE | 2018-10-20 13:03 | Operative Note ---
Date of procedure: 10/20/18 Pre-op diagnosis: left uvj stone with sepsis Post-op diagnosis: same Procedure: Cystoscopy and left 6 x 26 cm ureteral stent placement Anesthesia: GETA Surgeon: Gurjit Hull Was there an golf player assistant present: No Estimated blood loss (cc): 0 Specimen: none Condition: stable Disposition: PACU Procedure in Detail: Patient was prepped and draped in normal sterile fashion. Timeout procedure performed. I then inserted the cystoscope into the patient's bladder. I attempted to cannulate the left ureteral orifice using a sensor wire which was unsuccessful secondary to distal obstruction. I then placed the open ended ureteral catheter into the left ureteral orifice and then quickly shot a retrograde using just saline. At this point I was then able to place a sensor wire into the left kidney using fluoroscopy. Immediate return of large quantity of pus was obtained from the left kidney. I then proceeded to place a 6 x 26 cm stent with good curl seen in the left kidney and in the bladder. Bladder was drained and a 16-[place] catheter was placed. Patient taken to PACU in stable condition.
--- NOTE | 2018-10-20 13:36 | Anesthesia Evaluation Post Op ---
Date of Encounter: 10/20/18 Time of Encounter: 13:35 - Vital Signs Vital Signs: Vital Signs/O2 Sat/Glucose, Most Recent Temp Pulse Resp BP Pulse Ox 98.5 F 73 20 125/83 97 10/20/18 13:10 10/20/18 13:30 10/20/18 13:30 10/20/18 13:30 10/20/18 13:30 Blood Glucose* 111 - Lungs Lungs: Clear Ascult./Percussion - Airway Airway: Non-obstructed - Cardiovascular Regular Rate - Mental Status Mental Status: Alert & Oriented, Answers Appropriately - Pain Pain Scale: 0 Pain Scale used: Numeric (1 - 10) - Nausea Vomiting Nausea Vomiting: Not Present - Hydration Hydration: Tolerates oral liquids - Discharge PostOp Status: Transfer Patient to floor
[2018-10-20] MEDS ORDERED: Acetaminophen 325 MG TABLET PO PRN (13:55)
[2018-10-20] MEDS ORDERED: Ondansetron 4 MG/2 ML VIAL IVP PRN (13:55)
[2018-10-20] MEDS ORDERED: Ringers Solution, Lactated 1,000 ML IVC SCH (17:00)
--- NOTE | 2018-10-20 17:06 | Internal Med Progress Note ---
Hospitalist Progress Note - Encounter Date of Encounter: 10/20/18 Time of Encounter: 17:05 - Subjective Interval History: I have seen and evaluated the patient at bedside. reports good appetite, denies nausea, vomiting or abdominal pain. denies chest pain or shortness of breath. - Exam Vitals: Temp Pulse Resp BP Pulse Ox 98.5 F 73 16 123/81 96 10/20/18 14:00 10/20/18 14:00 10/20/18 14:00 10/20/18 14:00 10/20/18 14:00 Exam: Vitals: Reviewed General: Alert and oriented x4. In no acute distress Skin: Normal color, no rash, no lesions. HEENT: EOM, pupils equal, round and reactive. Cardiovascular: RRR, normal S1 & S2, no rubs, murmurs or gallops. No JVD. Pulse regular. Lungs: CTA b/l, no wheezes or crackles. Abdomen: Soft, non-tender, no rigidity. Extremities: No deformity, no edema or tenderness, no joint swelling or clubbing. Neurological: Normal cognition and motor skills. Rest of the physical exam is non contributory - Assessment and Plan (1) Ureteral stone with hydronephrosis Current Visit: Yes Status: Acute (2) Sepsis Current Visit: Yes Status: Acute (3) UTI (urinary tract infection) Current Visit: Yes Status: Acute (4) Acute blood loss anemia Current Visit: Yes Status: Acute (5) Acute hyponatremia Current Visit: Yes Status: Acute (6) Hypokalemia Current Visit: Yes Status: Acute (7) Acute kidney injury Current Visit: Yes Status: Acute - Summary of Assessment and Plan Summary of Assessment and Plan: 43 year old woman with IBS-C who has had kidney stones in the past presenting to the emergency room complaining of one week of left flank pain radiating to her lower abdomen. Patient admitted to the hospital due to sepsis, secondary to UTI, EPI secondary to obstructive uropathy. Assessment: 1. Left nephrolithiasis with mild to moderate hydronephrosis s/p Cystoscopy and left 6 x 26 cm ureteral stent placement 2. IBS-C 3. UTI 4. Sepsis 5. EPI 6. VTE prophylaxis Plan: patient s/p cystoscopy, large quantity of pus was obtained from the left kidney unclear if sent for culture will continue ceftriaxone 1gm/IV daily. patient hemodynamically stable. UC growing gram positive cocci blood culture no growth to date continue IV hydration. will reassess kidney function tomorrow morning DC accu-checks and insulin coverage on senna plus Disposition: - Potential discharge tomorrow. - Time Spent with Patient Total time spent is greater than 50% in coordination of care (as documented) at patient's floor/unit and/or counseling patient: Greater than 35 minutes (40) Plan of Care Discussed with: patient (the nurse.) Internal Medicine: Result - Labs CBC & Chem 7: 10/20/18 04:44 10/20/18 04:44 Labs: Short CBC 10/20/18 Range/Units 04:44 WBC 12.4 H (4.3-11.1) K/mcL Hgb 9.7 L (11.5-15.4) g/dL Hct 29.4 L (35.3-44.9) % Plt Count 189 (140-400) K/mcL Neutrophils # 9.3 H (1.6-8.9) K/mcL BMP 10/20/18 04:44 Sodium 132 L Potassium 4.0 Chloride 105 Carbon Dioxide 23 BUN 11 Creatinine 1.32 H Glucose 123 H Calcium 7.7 L - Impressions Impressions Fluoroscopy 10/20/18 00:00 IMPRESSION: Intraprocedural fluoroscopic spot images as above. See separate procedure report for more information. D/ / Henry Calvillo MD / Henry Calvillo MD Interpreting Provider: Henry Calvillo MD X-Ray 10/20/18 00:00 IMPRESSION: Intraprocedural fluoroscopic spot images as above. See separate procedure report for more information. D/ / Henry Calvillo MD / Henry Calvillo MD Interpreting Provider: Henry Calvillo MD Consult Discharge Plan - Plan Referrals: Gurjit Hull MD [Partnered Physician] - Zay Leigh MD [Primary Care Provider] - (2) Sepsis Qualifiers: Sepsis type: sepsis due to unspecified organism Sepsis acute organ dysfunction status: with acute organ dysfunction Severe sepsis acute organ dysfunction type: acute renal failure Acute renal failure type: unspecified Severe sepsis shock status: without septic shock Qualified Code(s): A41.9 - Sepsis, unspecified organism; R65.20 - Severe sepsis without septic shock; N17.9 - Acute kidney failure, unspecified (3) UTI (urinary tract infection) Qualifiers: Urinary tract infection type: site unspecified Hematuria presence: with hematuria Qualified Code(s): N39.0 - Urinary tract infection, site not specified; R31.9 - Hematuria, unspecified
[2018-10-21 07:57] LABS: Basophils % 0.2 %; Eosinophils % 0.3 %; Hematocrit 31.6 % (35.3-44.9); Hemoglobin 10.7 g/dL (11.5-15.4); Immature Granulocytes % 3.4 % (0-4); Lymphocytes % 13.5 %; Mean Corpuscular HGB Conc 33.9 g/dL (31.6-35.5); Mean Corpuscular Hemoglobin 31.5 pg (28.0-33.3); Mean Corpuscular Volume 92.9 fL (83.0-100.0); Mean Platelet Volume 9.8 fL (9.4-12.4); Monocytes % 6.6 %; Platelet Count 263 K/mcL (140-400); Red Cell Distribution Width 13.2 % (11.5-14.5); White Blood Count 14.9 K/mcL (4.3-11.1)
[2018-10-21 07:58] LABS: Neutrophils # 11.3 K/mcL (1.6-8.9)
[2018-10-21] MEDS: Sennosides/Docusate Sodium TABLET PO SCH ×2 (08:03→21:39)
[2018-10-21 08:17] LABS: BUN/Creatinine Ratio 16 (6-26); Blood Urea Nitrogen 15 mg/dL (6-20); Calcium 8.4 mg/dL (8.6-10.3); Carbon Dioxide 24 mEq/L (23-29); Chloride 103 mEq/L (98-107); Glucose 125 mg/dL (70-105); Magnesium 2.2 mg/dL (1.6-2.6); Osmolality,Calculated 280 (280-300); Phosphorous 3.3 mg/dL (2.7-4.5); Potassium 3.8 mEq/L (3.5-5.1); Sodium 134 mEq/L (136-145); eGFR For African Americans > 60 (> 60); eGFR For Non-African Americans > 60 (> 60)
[2018-10-21 08:27] LABS: Platelet Estimate Normal (Normal)
[2018-10-21] MEDS ORDERED: cefTRIAXone 1,000 MG in Water for inj. (sterile) 10 ML IVP SCH (09:00)
--- NOTE | 2018-10-21 09:10 | Urology Progress Note ---
<Suad De Jesus N - Last Filed: 10/21/18 09:08> Date of Encounter: 10/21/18 Time of Encounter: 08:10 - Assessment and Plan (1) Ureteral stone with hydronephrosis Current Visit: Yes Status: Acute Assessment and plan: Patient is a 43-year-old female who presents one day status post cystoscopy and left 6 x 26 cm ureteral stent placement. Vital signs are stable and afebrile. Renal function is reassuring. Urine culture is positive for pansensitive enterococcus. Urology recommends an additional 10-14 days of culture sensitive oral antibiotics. We will arrange for outpatient follow-up within [address] Hull to arrange for a staged stone extraction procedure. Progress Note Subjective: no new complaints, feels better Narrative: POD #1. Patient seen and examined sitting upright in bed in no apparent distress. Patient is tolerating normal diet without nausea or vomiting, and patient is voiding well without difficulty. Patient denies any fever, chills or flank pain. She admits to some stent discomfort. Objective Initial Vital Signs Temp Pulse Resp BP Pulse Ox 99.6 F 122 24 125/70 96 10/18/18 19:07 10/18/18 19:07 10/18/18 19:07 10/18/18 19:07 10/18/18 19:07 - General physical appearance Present: well developed, no distress, no pain - Respiratory Present: normal expansion, normal respiratory effort - Abdomen Present: soft, non tender. Absent: distended - Integumentary Present: no rash, no abnormal pigmentation - Musculoskeletal Present: normal posture - Psychiatric Present: oriented to time, oriented to person, oriented to place, speech is normal, memory intact - Labs 10/21/18 07:43 10/21/18 07:43 Diabetes panel 10/21/18 Range/Units 07:43 Sodium 134 L (136-145) mEq/L Potassium 3.8 (3.5-5.1) mEq/L Chloride 103 (98-107) mEq/L Carbon Dioxide 24 (23-29) mEq/L BUN 15 (6-20) mg/dL Creatinine 0.95 (0.60-1.20) mg/dL Glucose 125 H (70-105) mg/dL Calcium 8.4 L (8.6-10.3) mg/dL Calcium panel 10/21/18 Range/Units 07:43 Calcium 8.4 L (8.6-10.3) mg/dL Phosphorus 3.3 (2.7-4.5) mg/dL Pituitary panel 10/21/18 Range/Units 07:43 Sodium 134 L (136-145) mEq/L Potassium 3.8 (3.5-5.1) mEq/L Chloride 103 (98-107) mEq/L Carbon Dioxide 24 (23-29) mEq/L BUN 15 (6-20) mg/dL Creatinine 0.95 (0.60-1.20) mg/dL Glucose 125 H (70-105) mg/dL Calcium 8.4 L (8.6-10.3) mg/dL Adrenal panel 10/21/18 Range/Units 07:43 Sodium 134 L (136-145) mEq/L Potassium 3.8 (3.5-5.1) mEq/L Chloride 103 (98-107) mEq/L Carbon Dioxide 24 (23-29) mEq/L BUN 15 (6-20) mg/dL Creatinine 0.95 (0.60-1.20) mg/dL Glucose 125 H (70-105) mg/dL Calcium 8.4 L (8.6-10.3) mg/dL - VTE Documentation of Mechanical Device: Intermittent pneumatic compression device Consult Discharge Plan - Plan Referrals: Gurjit Hull MD [Partnered Physician] - Zay Leigh MD [Primary Care Provider] - <Gurjit Hull - Last Filed: 10/21/18 12:57> Date of Encounter: 10/21/18 - Assessment and Plan (1) Fever and chills Current Visit: Yes Status: Acute (2) Acute cystitis without hematuria Current Visit: Yes Status: Acute (3) Nausea without vomiting Current Visit: Yes Status: Acute (4) Ureteral stone with hydronephrosis Current Visit: Yes Status: Acute Progress Note Narrative: Patient seen and examined independent. Agree with plan as written by Suad De Jesus. Patient okay to be discharged home from urology standpoint with appropriate antibiotics. Patient will be scheduled next for stone extraction. Objective Initial Vital Signs Temp Pulse Resp BP Pulse Ox 99.6 F 122 24 125/70 96 10/18/18 19:07 10/18/18 19:07 10/18/18 19:07 10/18/18 19:07 10/18/18 19:07 - Labs 10/21/18 07:43 10/21/18 07:43 Diabetes panel 10/21/18 Range/Units 07:43 Sodium 134 L (136-145) mEq/L Potassium 3.8 (3.5-5.1) mEq/L Chloride 103 (98-107) mEq/L Carbon Dioxide 24 (23-29) mEq/L BUN 15 (6-20) mg/dL Creatinine 0.95 (0.60-1.20) mg/dL Glucose 125 H (70-105) mg/dL Calcium 8.4 L (8.6-10.3) mg/dL Calcium panel 10/21/18 Range/Units 07:43 Calcium 8.4 L (8.6-10.3) mg/dL Phosphorus 3.3 (2.7-4.5) mg/dL Pituitary panel 10/21/18 Range/Units 07:43 Sodium 134 L (136-145) mEq/L Potassium 3.8 (3.5-5.1) mEq/L Chloride 103 (98-107) mEq/L Carbon Dioxide 24 (23-29) mEq/L BUN 15 (6-20) mg/dL Creatinine 0.95 (0.60-1.20) mg/dL Glucose 125 H (70-105) mg/dL Calcium 8.4 L (8.6-10.3) mg/dL Adrenal panel 10/21/18 Range/Units 07:43 Sodium 134 L (136-145) mEq/L Potassium 3.8 (3.5-5.1) mEq/L Chloride 103 (98-107) mEq/L Carbon Dioxide 24 (23-29) mEq/L BUN 15 (6-20) mg/dL Creatinine 0.95 (0.60-1.20) mg/dL Glucose 125 H (70-105) mg/dL Calcium 8.4 L (8.6-10.3) mg/dL
[2018-10-21 13:25] LABS: Acinetobacter baumannii by PCR Not Detected (Not Detect); Candida albicans by PCR Not Detected (Not Detect); Candida glabrata by PCR Not Detected (Not Detect); Candida krusei by PCR Not Detected (Not Detect); Candida parapsilosis by PCR Not Detected (Not Detect); Candida tropicalis by PCR Not Detected (Not Detect); Enterobacter cloacae Cmplx PCR Not Detected (Not Detect); Enterobacteriaceae by PCR Not Detected (Not Detect); Enterococcus by PCR Not Detected (Not Detect); Escherichia coli by PCR DETECTED (Not Detect); Klebsiella oxytoca by PCR Not Detected (Not Detect); Klebsiella pneumoniae by PCR Not Detected (Not Detect); Proteus by PCR Not Detected (Not Detect); Pseudomonas aeruginosa by PCR Not Detected (Not Detect); Serratia marcescens by PCR Not Detected (Not Detect); Staphylococcus aureus by PCR Not Detected (Not Detect); Staphylococcus by PCR Not Detected (Not Detect); Streptococcus agalactiae(B)PCR Not Detected (Not Detect); Streptococcus by PCR Not Detected (Not Detect); Streptococcus pneumoniae PCR Not Detected (Not Detect); Streptococcus pyogenes (A) PCR Not Detected (Not Detect); blaKPC Carbapenem-Resist Gene Not Detected (Not Detect); mecA Methicillin-Resist Gene Not Detected (Not Detect); vanA/B Vancomycin-Resist Genes Not Detected (Not Detect)
--- NOTE | 2018-10-21 14:45 | Internal Med Progress Note ---
Hospitalist Progress Note - Encounter Date of Encounter: 10/21/18 Time of Encounter: 14:43 - Subjective Interval History: I have seen and evaluated the patient at bedside. patient got very emotional when I communicated to her she needed to stay in the hospital at least 24-48 hours until the repeat blood cultures are negative. she denies abdominal pain, n ausea or vomiting. - Exam Vitals: Temp Pulse Resp BP Pulse Ox 97.7 F 88 17 127/79 96 10/21/18 10:09 10/21/18 10:09 10/21/18 10:10/21/18 10:10/21/18 10:09 Exam: Vitals: Reviewed General: Alert and oriented x4. In no acute distress Cardiovascular: RRR, normal S1 & S2, no rubs, murmurs or gallops. Lungs: CTA b/l, no wheezes or crackles. Abdomen: Soft, non-tender, no rigidity. NABS in all 4 quadrants Extremities: No edema Neurological: No focal neurological deficits. Rest of the physical exam is non contributory - Assessment and Plan (1) Ureteral stone with hydronephrosis Current Visit: Yes Status: Acute (2) Sepsis Current Visit: Yes Status: Resolved (3) UTI (urinary tract infection) Current Visit: Yes Status: Acute (4) Acute blood loss anemia Current Visit: Yes Status: Acute (5) Acute hyponatremia Current Visit: Yes Status: Acute (6) Acute kidney injury Current Visit: Yes Status: Resolved (7) Bacteremia Current Visit: Yes Status: Acute - Summary of Assessment and Plan Summary of Assessment and Plan: 43 year old woman with IBS-C who has had kidney stones in the past presenting to the emergency room complaining of one week of left flank pain radiating to her lower abdomen. Patient admitted to the hospital due to sepsis, secondary to UTI, EPI secondary to obstructive uropathy. Assessment: 1. Left nephrolithiasis with mild to moderate hydronephrosis s/p Cystoscopy and left 6 x 26 cm ureteral stent placement 2. IBS-C 3. UTI 4. Sepsis 5. EPI (resolved) 6. VTE prophylaxis 7. Bacteremia 8. Anemia Plan: - 1 bottle of the first set of blood culture: positive for gram negative rods. PCR positive for E.coli. - Urine culture: enterococcus Faecalis - will repeat blood culture - increase ceftriaxone to 2gm/IV daily. - continue pain control - on docusate/senna - will add heparin for dvt prophylaxis - urology recommendations appreciated. - Time Spent with Patient Total time spent is greater than 50% in coordination of care (as documented) at patient's floor/unit and/or counseling patient: Greater than 35 minutes (45) Plan of Care Discussed with: patient (and the nurse.) Internal Medicine: Result - Labs CBC & Chem 7: 10/21/18 07:43 10/21/18 07:43 Labs: Short CBC 10/21/18 Range/Units 07:43 WBC 14.9 H (4.3-11.1) K/mcL Hgb 10.7 L (11.5-15.4) g/dL Hct 31.6 L (35.3-44.9) % Plt Count 263 (140-400) K/mcL Neutrophils # 11.3 H (1.6-8.9) K/mcL BMP 10/21/18 07:43 Sodium 134 L Potassium 3.8 Chloride 103 Carbon Dioxide 24 BUN 15 Creatinine 0.95 Glucose 125 H Calcium 8.4 L - VTE Documentation of Mechanical Device: Intermittent pneumatic compression device Consult Discharge Plan - Plan Referrals: Gurjit Hull MD [Partnered Physician] - Zay Leigh MD [Primary Care Provider] - (2) Sepsis Qualifiers: Sepsis type: sepsis due to unspecified organism Sepsis acute organ dysfunction status: with acute organ dysfunction Severe sepsis acute organ dysfunction type: acute renal failure Acute renal failure type: unspecified Severe sepsis shock status: without septic shock Qualified Code(s): A41.9 - Sepsis, unspecified organism; R65.20 - Severe sepsis without septic shock; N17.9 - Acute kidney failure, unspecified (3) UTI (urinary tract infection) Qualifiers: Urinary tract infection type: site unspecified Hematuria presence: with hematuria Qualified Code(s): N39.0 - Urinary tract infection, site not specified; R31.9 - Hematuria, unspecified
[2018-10-21] MEDS: *HR* Heparin 5,000 UNIT/ML VIAL SQ SCH (16:32)
[2018-10-22] MEDS ORDERED: GuaiFENesin Liq 200 MG/10 ML UDC PO PRN (03:28)
[2018-10-22] MEDS: *HR* Heparin 5,000 UNIT/ML VIAL SQ SCH ×2 (05:56→16:30)
[2018-10-22 07:00] LABS: Basophils # 0.1 K/mcL (0.0-0.2); Basophils % 0.6 %; Eosinophils # 0.2 K/mcL (0.0-0.6); Eosinophils % 1.2 %; Hematocrit 35.6 % (35.3-44.9); Hemoglobin 11.7 g/dL (11.5-15.4); Immature Granulocytes % 2.6 % (0-4); Lymphocytes # 2.9 K/mcL (0.6-4.6); Lymphocytes % 23.6 %; Mean Corpuscular HGB Conc 32.9 g/dL (31.6-35.5); Mean Corpuscular Volume 94.2 fL (83.0-100.0); Mean Platelet Volume 9.5 fL (9.4-12.4); Monocytes % 8.1 %; Platelet Count 424 K/mcL (140-400); Red Blood Count 3.78 M/mcL (3.82-4.97); Red Cell Distribution Width 13.3 % (11.5-14.5); Segmented Neutrophils % 63.9 %; White Blood Count 12.4 K/mcL (4.3-11.1)
[2018-10-22 07:15] LABS: Neutrophils # 7.9 K/mcL (1.6-8.9)
[2018-10-22] MEDS: cefTRIAXone 2,000 MG in Water for inj. (sterile) 20 ML IVP SCH (07:39)
[2018-10-22] MEDS: Sennosides/Docusate Sodium TABLET PO SCH ×2 (07:41→21:21)
[2018-10-22 07:51] LABS: Platelet Estimate Normal (Normal)
--- NOTE | 2018-10-22 10:42 | Internal Med Progress Note ---
Hospitalist Progress Note - Encounter Date of Encounter: 10/22/18 Time of Encounter: 10:39 - Subjective Interval History: I have seen and evaluated the patient at bedside. Patient reported feeling well. denies back pain or abdominal pain. denies nausea, vomiting, chest pain or shortness of breath. - Exam Vitals: Temp Pulse Resp BP Pulse Ox 98.7 F 76 16 132/84 96 10/22/18 07:55 10/22/18 07:55 10/22/18 07:55 10/22/18 07:55 10/22/18 07:55 Exam: Vitals: Reviewed General: Alert and oriented x4. In no acute distress Cardiovascular: RRR, normal S1 & S2, no rubs, murmurs or gallops. Lungs: CTA b/l, no wheezes or crackles. Abdomen: Soft, non-tender, no rigidity. NABS in all 4 quadrants Extremities: No edema Neurological: No focal neurological deficits. Rest of the physical exam is non contributory - Assessment and Plan (1) Bacteremia Current Visit: Yes Status: Acute (2) Ureteral stone with hydronephrosis Current Visit: Yes Status: Acute (3) Sepsis Current Visit: Yes Status: Resolved (4) UTI (urinary tract infection) Current Visit: Yes Status: Acute (5) Acute blood loss anemia Current Visit: Yes Status: Acute (6) Acute hyponatremia Current Visit: Yes Status: Acute (7) Acute kidney injury Current Visit: Yes Status: Resolved - Summary of Assessment and Plan Summary of Assessment and Plan: 43 year old woman with IBS-C who has had kidney stones in the past presenting to the emergency room complaining of one week of left flank pain radiating to her lower abdomen. Patient admitted to the hospital due to sepsis, secondary to UTI, EPI secondary to obstructive uropathy. Assessment: 1. Left nephrolithiasis with mild to moderate hydronephrosis s/p Cystoscopy and left 6 x 26 cm ureteral stent placement 2. IBS-C 3. UTI 4. Sepsis 5. EPI (resolved) 6. VTE prophylaxis 7. Bacteremia 8. Anemia Plan: - 1 bottle of the first set of blood culture: positive for gram negative rods. PCR positive for E.coli. pending sensitivity and specificity - Urine culture: Pansensitive enterococcus Faecalis - Repeated blood culture 10/21/18: No growth to date. will wait until blood culture are negative for at least 48 hours prior to discharge - C/W ceftriaxone to 2gm/IV daily. - Pain control - on docusate/senna - Heparin Sub for DVT prophylaxis - urology recommendations appreciated. Disposition: - Patient to remain in the hospital for at least 24 more hours. Potential discharge tomorrow morning. - Time Spent with Patient Total time spent is greater than 50% in coordination of care (as documented) at patient's floor/unit and/or counseling patient: Greater than 35 minutes (40) Plan of Care Discussed with: patient (and the nurse.) Internal Medicine: Result - Labs CBC & Chem 7: 10/22/18 05:40 10/21/18 07:43 Labs: Short CBC 10/22/18 Range/Units 05:40 WBC 12.4 H (4.3-11.1) K/mcL Hgb 11.7 (11.5-15.4) g/dL Hct 35.6 (35.3-44.9) % Plt Count 424 H D (140-400) K/mcL Neutrophils # 7.9 (1.6-8.9) K/mcL - VTE Documentation of Mechanical Device: Intermittent pneumatic compression device Consult Discharge Plan - Plan Referrals: Gurjit Hull MD [Partnered Physician] - Zay Leigh MD [Primary Care Provider] - (3) Sepsis Qualifiers: Sepsis type: sepsis due to unspecified organism Sepsis acute organ dysfunction status: with acute organ dysfunction Severe sepsis acute organ dysfunction type: acute renal failure Acute renal failure type: unspecified Se em[place] sepsis shock status: without septic shock Qualified Code(s): A41.9 - Sepsis, unspecified organism; R65.20 - Severe sepsis without septic shock; N17.9 - Acute kidney failure, unspecified (4) UTI (urinary tract infection) Qualifiers: Urinary tract infection type: site unspecified Hematuria presence: with hematuria Qualified Code(s): N39.0 - Urinary tract infection, site not specified; R31.9 - Hematuria, unspecified
[2018-10-23] MEDS: *HR* Heparin 5,000 UNIT/ML VIAL SQ SCH (06:55)
[2018-10-23 06:57] VITALS: BP 157/91
[2018-10-23] MEDS: Sennosides/Docusate Sodium TABLET PO SCH (08:20)
[2018-10-23 08:25] LABS: Basophils % 0.4 %; Eosinophils # 0.1 K/mcL (0.0-0.6); Eosinophils % 1.2 %; Hematocrit 35.2 % (35.3-44.9); Immature Granulocytes % 2.1 % (0-4); Lymphocytes # 2.1 K/mcL (0.6-4.6); Lymphocytes % 19.5 %; Mean Corpuscular HGB Conc 34.1 g/dL (31.6-35.5); Mean Corpuscular Hemoglobin 31.2 pg (28.0-33.3); Mean Corpuscular Volume 91.4 fL (83.0-100.0); Mean Platelet Volume 9.1 fL (9.4-12.4); Monocytes # 0.8 K/mcL (0.0-1.3); Monocytes % 7.1 %; Neutrophils # 7.5 K/mcL (1.6-8.9); Platelet Count 462 K/mcL (140-400); Red Blood Count 3.85 M/mcL (3.82-4.97); Red Cell Distribution Width 12.9 % (11.5-14.5); Segmented Neutrophils % 69.7 %; White Blood Count 10.7 K/mcL (4.3-11.1)
[2018-10-23] MEDS: cefTRIAXone 2,000 MG in Water for inj. (sterile) 20 ML IVP SCH (08:49)
--- NOTE | 2018-10-23 09:56 | Discharge Summary ---
Orders not resulted at time of discharge: Pending orders 10/21/18 14:09 Culture,Blood [BC] Stat Date of Encounter: 10/23/18 Time of Encounter: 09:53 - Discharge Diagnosis (1) Bacteremia Priority: Primary Status: Resolved (2) Ureteral stone with hydronephrosis Priority: Secondary Status: Acute (3) Sepsis Priority: Secondary Status: Resolved Qualifiers: Sepsis type: sepsis due to unspecified organism Sepsis acute organ dysfunction status: with acute organ dysfunction Severe sepsis acute organ dysfunction type: acute renal failure Acute renal failure type: unspecified Severe sepsis shock status: without septic shock Qualified Code(s): A41.9 - Sepsis, unspecified organism; R65.20 - Severe sepsis without septic shock; N17.9 - Acute kidney failure, unspecified (4) UTI (urinary tract infection) Priority: Secondary Status: Acute Qualifiers: Urinary tract infection type: site unspecified Hematuria presence: with hematuria Qualified Code(s): N39.0 - Urinary tract infection, site not specified; R31.9 - Hematuria, unspecified (5) Acute blood loss anemia Priority: Secondary Status: Acute (6) Acute hyponatremia Priority: Secondary Status: Acute (7) Acute kidney injury Priority: Secondary Status: Resolved Hospital course: Ms. Haq is a 43 year old female PMH of IBS-C who has had kidney stones in the past presenting to the emergency room complaining of one week of left flank pain radiating to her lower abdomen, fever and chills. Abdomen CT showed a 6 mm distal left ureteral calculus with mild to moderate left-sided hydronephrosis with infiltration of the perinephric and periureteric fat. Patient was admitted to the hospital due to EPI, sepsis secondary to UTI, nephrolithiasis with hydronephrosis. Patient was managed with broad spectrum IV antibiotics and IV fluids. urology consulted and patient underwent: Cystoscopy and left 6 x 26 cm ureteral stent placement. Blood culture: 1 bottle of the first set grew pansensitive E.coli. Urine culture: grew pansensitive enterococcus. Repeated blood cultures: no growth for >48 hours. Patient has been afebrile for longer than 48-72 hours, hemodynamically stable. Patient will be discharge home on oral antibiotics to complete 14 days of antibiotics. - Time Spent with Patient Total time spent providing and/or coordinating discharge services: Time spent: Greater than 30 minutes (35) - Discharge Medications Prescriptions: New Amoxicillin/Clavulanate [Augmentin] 875 mg PO BIDWM 10 Days #20 tablet Continued Tamsulosin [Flomax] 0.4 mg PO DAILY OxyCODONE/APAP 5/325 [Percocet 5/325 MG] 1 tab PO Q6H PRN PRN Reason: Pain Ondansetron HCl 4 mg PO Q4H PRN PRN Reason: Nausea Norethindrone-E.estradiol-Iron [Lo Loestrin Fe 1-10 Tablet] 1 tab PO DAILY Discontinued Sulfamethoxazole/Trimeth DS [Bactrim Ds] 1 tab PO BID Home Medications: Norethindrone-E.estradiol-Iron [Lo Loestrin Fe 1-10 Tablet] 1 tab PO DAILY 10/19/18 [History] Ondansetron HCl 4 mg PO Q4H PRN 10/19/18 [History] OxyCODONE/APAP 5/325 [Percocet 5/325 MG] 1 tab PO Q6H PRN 10/19/18 [History] Tamsulosin [Flomax] 0.4 mg PO DAILY 10/19/18 [History] Amoxicillin/Clavulanate [Augmentin] 875 mg PO BIDWM 10 Days #20 tablet 10/23/18 [Rx] Allergies/Adverse Reactions: Allergy/AdvReac Type Severity Reaction Status Date / Time No Known Allergies Allergy Verified 10/19/18 10:49 Date of admission: 10/22/18 14:10 Primary care physician: Zay Leigh MD Consults: 10/18/18 22:56 Consult to Urology [CONS] Stat Consulting Provider: [facility] [place] Reason for Consult: kidney stone Call Completed: Yes - Constitutional Vitals: Temp Pulse Resp BP Pulse Ox 98.3 F 84 14 157/91 96 10/23/18 06:54 10/23/18 06:54 10/23/18 06:54 10/23/18 06:54 10/23/18 08:40 Exam: Vitals: Reviewed General: Alert and oriented x4. In no acute distress Cardiovascular: RRR, normal S1 & S2, no rubs, murmurs or gallops. Lungs: CTA b/l, no wheezes or crackles. Abdomen: Soft, non-tender, no rigidity. NABS in all 4 quadrants Extremities: No edema Neurological: No focal neurological deficits. Rest of the physical exam is non contributory - Patient Status Disposition: Home, Self-Care Condition: Good Functional capacity at discharge: independent ambulation Overall status at discharge: patient is back to baseline - Discharge Instructions Follow Up With: Gurjit Hull MD [Partnered Physician] - Zay Leigh MD [Primary Care Provider] - - Diet and Activity Activity: resume usual activities as tolerated Diet: advance to your usual diet - VTE Documentation of Mechanical Device: Intermittent pneumatic compression device
== END 2018-10-23 11:40 | disposition home or self-care (01) | DRG 854 ==
LOC: 3ANU 19:03 → EMEROOARM 19:03 → SUATTDRO 23:55 → 3ANU 10-19 00:55
PROVIDERS: ADMIT Internal Medicine; ATTEND Internal Medicine